=== PATIENT | male | born 1980 | race American Indian/Alaskan Native ===

== ENCOUNTER 2018-08-02 17:29 | Emergency (ER) | payer SELFPAY ==
[2018-08-02] MEDS ORDERED: NACL 0.9% 1000 ML 1,000 ML IV ONE ×2 (18:01→20:30)
[2018-08-02 18:33] LABS: Basophils # (Auto) 0.1 K/mm3 (0.0-0.1); Basophils % (Auto) 0.7 % (0.0-1.8); Eosinophils % (Auto) 0.4 % (0.0-4.3); Hematocrit 44.4 % (35.5-45.6); Lymphocytes # (Auto) 0.9 K/mm3 (1.2-5.4); Lymphocytes % (Auto) 12.6 % (13.4-35.0); Mean Corpuscular HGB Conc 34 % (32-34); Mean Corpuscular Volume 90 fl (84-94); Monocytes # (Auto) 0.5 K/mm3 (0.0-0.8); Monocytes % (Auto) 7.5 % (0.0-7.3); Platelet Count 172 K/mm3 (140-440); Red Blood Count 4.96 M/mm3 (3.65-5.03)
[2018-08-02 18:52] LABS: BUN/Creatinine Ratio 15; Blood Urea Nitrogen 12 mg/dL (9-20); Calcium 9.2 mg/dL (8.4-10.2); Hemolysis Index 27
[2018-08-02 19:53] LABS: Bilirubin,Urine NEG (Negative); Blood,Urine SM (Negative); Color,Urine Colorless (Yellow); Protein,Urine <15 mg/dL mg/dL (Negative); Urobilinogen,Urine < 2.0 mg/dL (<2.0)
--- NOTE | 2018-08-02 20:30 | Emergency Department Report ---
ED General Adult HPI - General Chief complaint: Pain General Stated complaint: CRAMPING Time Seen by Provider: 08/02/18 18:01 Source: EMS Mode of arrival: Ambulatory Limitations: No Limitations - History of Present Illness Initial comments: 38-year-old male presents to ED with pain to bilateral arms earlier today. 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 Patient reports that he has been drinking and sports drinks today. -: This afternoon Location: neck, left, right, upper extremity Severity scale (0 -10): 0 Consistency: intermittent Improves with: none Worsens with: none Associated Symptoms: denies: chest pain, fever/chills, nausea/vomiting - Related Data Allergies Allergy/AdvReac Type Severity Reaction Status Date / Time No Known Allergies Allergy Unverified 08/02/18 17:37 ED Review of Systems ROS: Stated complaint: CRAMPING Other details as noted in HPI Comment: All other systems reviewed and negative Musculoskeletal: myalgia ED Past Medical Hx - Past Medical History Previous Medical History?: No - Surgical History Additional Surgical History: KNEE - Social History Smoking Status: Never Smoker Substance Use Type: Alcohol ED Physical Exam - General Limitations: No Limitations General appearance: alert, in no apparent distress - Head Head exam: Present: atraumatic, normocephalic - Eye Eye exam: Present: normal appearance - ENT ENT exam: Present: mucous membranes moist - Neck Neck exam: Present: normal inspection - Respiratory Respiratory exam: Present: normal lung sounds bilaterally. Absent: respiratory distress - Cardiovascular Cardiovascular Exam: Present: normal rhythm, tachycardia - GI/Abdominal GI/Abdominal exam: Present: soft, tenderness. Absent: distended - Extremities Exam Extremities exam: Present: normal inspection, full ROM, other (no swelling to extremities noted). Absent: tenderness - Neurological Exam Neurological exam: Present: alert, oriented X3 - Psychiatric Psychiatric exam: Present: normal affect, normal mood - Skin Skin exam: Present: warm, dry, intact, normal color ED Course Vital Signs 08/02/18 08/02/18 08/02/18 17:37 18:00 18:20 Temperature 98.7 F Pulse Rate 111 H 100 H Respiratory 18 18 18 Rate Blood Pressure 152/107 Blood Pressure 147/93 [Right] O2 Sat by Pulse 98 100 100 Oximetry 08/02/18 19:43 Temperature 98 F Pulse Rate 94 H Respiratory 16 Rate Blood Pressure Blood Pressure 140/89 [Right] O2 Sat by Pulse 99 Oximetry ED Medical Decision Making - Lab Data Result diagrams: 08/02/18 18:23 08/02/18 18:23 - EKG Data -: EKG Interpreted by Me EKG shows normal: sinus rhythm, axis, intervals, QRS complexes Rate: normal - EKG Data Interpretation: nonspecific ST-T wave taran - Medical Decision Making CK levels 5 times the refernce range usually suggest rhabdomyolysis. CK currently 683, so likely mild rhabdo as not quite 5 times the upper limits of normal. Renal function normal, urine is clear. Pt given 2L bolus of NS. States he is feeling much better at this time. Advised to drink plenty water over the next couple of days, especially if he will be working outdoors. Return precautions given. Outpt follow-up advised - Differential Diagnosis rhabdomylysis, heat cramps, dehydration Critical care attestation.: If time is entered above; I have spent that time in minutes in the direct care of this critically ill patient, excluding procedure time. ED Disposition Clinical Impression: Rhabdomyolysis Disposition: -01 TO HOME OR SELFCARE Is pt being admited?: No Condition: Stable Instructions: Heat Exhaustion (ED), Rhabdomyolysis (ED) Referrals: MERE TELLEZ MD [Primary Care Provider] - 3-5 Days
[2018-08-02 21:32] VITALS: BP 135/87
== END 2018-08-02 21:33 | disposition home or self-care (01) ==
LOC: ED 17:29
DX: M62.82 Rhabdomyolysis (principal)
CPT/HCPCS: 36415; 80048; 81001; 82550; 85025; 96360; 96361; 99283; J7030